=== PATIENT | female | born 1990 | race Caucasian/White ===

== ENCOUNTER 2017-12-29 07:12 | Emergency (ER) | payer BC ==
[~2017-12-29] VITALS: Ht 167.6 cm; Wt 52.6 kg
[2017-12-29 07:12] VITALS: BP_SYST 125
[2017-12-29] MEDS ORDERED: IBUPROFEN 600 MG TABLET PO ONE (08:15)
[2017-12-29] MEDS ORDERED: ONDANSETRON 4 MG ODT TAB PO ONE (09:00)
[2017-12-29 10:20] VITALS: BP_SYST 125
== END 2017-12-29 10:20 | disposition home or self-care (01) ==
LOC: SED 07:12
DX: B34.9 Viral infection, unspecified (principal)
CPT/HCPCS: 99283; Q0162